=== PATIENT | female | born 2000 | race Caucasian/White ===

== ENCOUNTER 2021-10-19 13:50 | Outpatient (CLI) | payer BC, MEDICAID ==
[2021-10-19] VITALS (14 sets, daily range): BP systolic 120–153; BP diastolic 71–100
[~2021-10-19] VITALS: Ht 165.1 cm; Wt 84.5 kg
[2021-10-19] MEDS ORDERED: PRENTAB9 PO (14:15)
[2021-10-19] MEDS ORDERED: IRON325T2 PO (14:15)
[2021-10-19] MEDS ORDERED: HOME MED LIST COMPLETE! XX SCH (14:20)
[2021-10-19 15:22] LABS: HEMATOCRIT 32.3 % (36.0-47.0); HEMOGLOBIN 10.4 g/dl (12.0-15.5); MEAN CORPUSCULAR HEMOGLOBIN 25.8 pg (27.0-33.0); MEAN CORPUSCULAR HGB CONC 32.2 g/dl (32.0-36.5); MEAN CORPUSCULAR VOLUME 80.1 fl (80.0-96.0); PLATELET COUNT, AUTOMATED 265 10^3/uL (150-450); RED BLOOD COUNT 4.03 10^6/uL (4.00-5.40); WHITE BLOOD COUNT 7.2 10^3/uL (4.0-10.0)
[2021-10-19] MEDS ORDERED: BETAMETHASONE SOLUSPAN 6MG/ML 5ML VIAL (J0702 PER 3MG) IM SCH (15:35)
[2021-10-19 15:46] LABS: ALT/SGPT 36 U/L (12-78); BILIRUBIN,TOTAL 0.5 MG/DL (0.2-1.0); GLOMERULAR FILTRATION RATE > 60.0 (>60); LDH LACTATE DEHYDROGENASE 148 U/L (84-246); URIC ACID 3.7 MG/DL (2.6-6.0)
[2021-10-19 15:57] LABS: CREATININE,RANDOM URINE 41.3 MG/DL; TOTAL PROTEIN,RANDOM URINE 14.2 MG/DL (0.0-12.0)
[2021-10-19 17:43] LABS: BASO % 0.4 % (0.0-1.0); EOS # 0.1 10^3/uL (0.0-0.5); EOS % 1.6 % (0.0-3.0); HEMATOCRIT 34.5 % (36.0-47.0); HEMOGLOBIN 10.9 g/dl (12.0-15.5); LYMPH # 1.6 10^3/uL (1.5-5.0); LYMPH % 20.4 % (24.0-44.0); MEAN CORPUSCULAR HEMOGLOBIN 25.6 pg (27.0-33.0); MEAN CORPUSCULAR HGB CONC 31.6 g/dl (32.0-36.5); MEAN CORPUSCULAR VOLUME 81.2 fl (80.0-96.0); MONO # 0.7 10^3/uL (0.0-0.8); MONO % 8.3 % (2.0-8.0); NEUTROPHILS # 5.5 10^3/uL (1.5-8.5); PLATELET COUNT, AUTOMATED 277 10^3/uL (150-450); RED BLOOD COUNT 4.25 10^6/uL (4.00-5.40)
[2021-10-19 19:11] LABS: HEPATITIS C VIRUS ABY INDEX < 0.0 INDEX (<0.8); HIV 1&2 SCREEN CENTAUR NEGATIVE (NEGATIVE)
== END 2021-10-19 19:25 | disposition home or self-care (01) ==
LOC: M LDO 13:50
PROVIDERS: ATTEND Advanced Practice Midwife
DX: O14.03 Mild to moderate pre-eclampsia, third trimester (principal); Z3A.36 36 weeks gestation of pregnancy; Z80.42 Family history of malignant neoplasm of prostate
CPT/HCPCS: 36415; 59025; 76811; 76820; 82247; 82565; 82570; 83615; 84156; 84450; 84460; 84550; 85025; 85027; 86762; 86780; 86803; 87340; 87389; 96372; G0463; J0702

== ENCOUNTER → 2021-10-19 | Outpatient (REF) | payer BC, MEDICAID ==
[~2021-10-19] MED LIST: IRON325T2 PO; PRENTAB9 PO
== END ==
LOC: M SFHCWAGY 15:10
PROVIDERS: ATTEND Advanced Practice Midwife
DX: O09.293 Supervision of pregnancy with other poor reproductive or obstetric history, third trimester (principal)

== ENCOUNTER → 2021-10-20 | Outpatient (CLI) | payer BC, MEDICAID ==
[~2021-10-20] VITALS: Ht 165.1 cm; Wt 83.4 kg
[~2021-10-20] MED LIST changes: +BETAMETHASONE SOLUSPAN 6MG/ML 5ML VIAL (J0702 PER 3MG) IM ONE
[2021-10-20 16:04] VITALS: BP 137/78
== END ==
LOC: M LDO 15:45
PROVIDERS: ATTEND Specialist
DX: O14.03 Mild to moderate pre-eclampsia, third trimester (principal); Z3A.36 36 weeks gestation of pregnancy
CPT/HCPCS: 59025; 96372; G0378; G0463; J0702